=== PATIENT | female | born 1950 | race Caucasian/White ===

== ENCOUNTER 2023-01-11 07:52 | Outpatient (CLI) | payer OTHER ==
[~2023-01-11 07:52] MED LIST: CALTRATE 600600 MG; CARDURA1 MG PO; EVISTA60 MG; EVISTA60 MG PO; LIPITOR20 MG PO; LOSARTAN POTASS25 MG; PROTONIX40 MG; TRICOR48 MG
== END 2023-01-11 07:59 | disposition home or self-care (01) ==
LOC: RX STUDY 07:52
PROVIDERS: ATTEND Otolaryngology
DX: R13.14 Dysphagia, pharyngoesophageal phase (principal)